=== PATIENT | female | born 1965 | race Caucasian/White ===

== ENCOUNTER 2018-04-22 16:41 | Emergency (ER) | payer SELFPAY ==
[2018-04-22 17:25] VITALS: TEMP 98.4; BMI 24.2
[2018-04-22] MEDS ORDERED: KETOROLAC TROMETHAMINE 30 MG/1 ML VIAL IVPUSH ONE (17:49)
[2018-04-22] MEDS ORDERED: ONDANSETRON 4 MG/2 ML VIAL IVPUSH ONE (17:49)
[2018-04-22] MEDS ORDERED: KETOROLAC TROMETHAMINE 30 MG/1 ML VIAL ONE (18:05)
[2018-04-22] MEDS ORDERED: ONDANSETRON 4 MG/2 ML VIAL ONE (18:05)
[2018-04-22 18:23] LABS: HEMATOCRIT 41.9 % (32.4-45.2); HEMOGLOBIN 13.8 GM/dL (10.7-15.3); MCH 28.6 pg (25.7-33.7); MEAN CELL VOLUME 86.8 fl (80-96); MEAN PLT VOLUME 8.7 fl (7.5-11.1); PLATELET COUNT 220 K/MM3 (134-434); RBC 4.83 M/mm3 (3.60-5.2); RDW 13.5 % (11.6-15.6); WHITE BLOOD COUNT 11.4 K/mm3 (4.0-10.0)
[2018-04-22] MEDS ORDERED: SODIUM CHLORIDE 0.9% 500 ML INFUS.BAG IV ONE (18:26)
--- NOTE | 2018-04-22 18:44 | PDOC ---
History of Present Illness - General Chief Complaint: Vomiting/Diarrhea Stated Complaint: PCP SENT Time Seen by Provider: 04/22/18 17:10 - History of Present Illness Initial Comments: The patient is a 52F with a history of a INDIA-BSO who presents with three days of suprapubic abdominal pain that radiated to both of her flanks. She was seen by here PCP yesterday and was prescribed nitrofurantoin. She presents today because her pain is worsening and is now associated with NBNB emesis and NB diarrhea. She does not recall how many episodes of emesis and reports 3-4 episodes of diarrhea. She endorses subjective fevers and myalgias. She denies FRANCO , dizziness, SOB, or sick contacts. 04/22/18 18:35 Past History - Past Medical History Allergies/Adverse Reactions: Allergies Allergy/AdvReac Type Severity Reaction Status Date / Time No Known Allergies Allergy Verified 04/22/18 17:25 Home Medications: Ambulatory Orders Cephalexin [Keflex] 500 mg PO BID 7 Days #14 capsule 04/22/18 COPD: No - Suicide/Smoking/Psychosocial Hx Smoking History: Never smoked Review of Systems - Review of Systems Comments:: GENERAL/CONSTITUTIONAL: + subjective fever, denies chills. No weakness. HEAD, EYES, EARS, NOSE AND THROAT: No change in vision. No ear pain or discharge. No sore throat. CARDIOVASCULAR: No chest pain or shortness of breath RESPIRATORY: No cough, wheezing, or hemoptysis. GASTROINTESTINAL: per HPI GENITOURINARY: + dysuria, denies hematuria or frequency MUSCULOSKELETAL: +myalgia. No joint or muscle swelling. SKIN: No rash NEUROLOGIC: No headache, vertigo, loss of consciousness, or change in strength/ sensation. ENDOCRINE: No increased thirst. No abnormal weight change HEMATOLOGIC/LYMPHATIC: No anemia, easy bleeding, or history of blood clots. ALLERGIC/IMMUNOLOGIC: No hives or skin allergy. 04/22/18 18:45 *Physical Exam - Vital Signs Last Vital Signs Temp Pulse Resp BP Pulse Ox 98.4 F 74 18 147/89 100 04/22/18 17:23 04/22/18 17:23 04/22/18 17:23 04/22/18 17:23 04/22/18 17:23 - Physical Exam Comments: GENERAL: Awake, alert, and fully oriented, in no acute distress HEAD: No signs of trauma, normocephalic, atraumatic EYES: PERRLA, EOMI, sclera anicteric, conjunctiva clear ENT: Auricles normal inspection, hearing grossly normal, nares patent, oropharynx clear without exudates. Moist mucosa NECK: Normal ROM, supple, no lymphadenopathy LUNGS: No distress, speaks full sentences, clear to auscultation bilaterally HEART: Regular rate and rhythm, normal S1 and S2, no murmurs appreciated ABDOMEN: Soft, mild diffuse TTP that is worse in suprapubic and flank regions, normoactive bowel sounds. No guarding, no rebound. EXTREMITIES : Normal inspection, Normal range of motion, no edema. No clubbing or cyanosis. NEUROLOGICAL: Cranial nerves II through XII grossly intact. Normal speech, normal gait, no focal sensorimotor deficits SKIN: Warm, Dry, normal turgor, no rashes or lesions noted 04/22/18 18:47 ED Treatment Course - LABORATORY CBC & Chemistry Diagram: 04/22/18 18:00 04/22/18 18:00 - Medications Given in the ED: ED Medications Discontinued Medications Generic Name Dose Route Start Last Admin Trade Name Freq PRN Reason Stop Dose Admin Ketorolac Tromethamine 30 mg 04/22/18 17:49 04/22/18 18:13 Toradol Injection - IVPUSH 04/22/18 17:50 30 mg ONCE ONE Administration Ondansetron HCl 4 mg 04/22/18 17:49 04/22/18 18:13 Zofran Injection IVPUSH 04/22/18 17:50 4 mg ONCE ONE Administration Sodium Chloride 1,000 ml 04/22/18 18:26 04/22/18 18:00 Normal Saline - IV 04/22/18 18:27 1,000 ml ONCE ONE Administration Medical Decision Making - Medical Decision Making The patient is a 52F with a history of INDIA-BSO who presents with suprapubic abdominal pain and dysuria. Ddx: UTI/Pyelo, STI, nephrolithiasis ED Course CMP, CBC, Upreg 1L NS 4mg Zofran IV once for nausea 30mg Toradol IV once for pain 04/22/18 18:48 I have transferred care of the patient to Dr. Mueller and discussed the clinical presentation, work-up and ED course thus far. 07/26/18 19:00 *DC/Admit/Observation/Transfer Diagnosis at time of Disposition: Urinary tract infection - Discharge Dispostion Disposition: HOME Condition at time of disposition: Improved - Prescriptions Prescriptions: Cephalexin [Keflex] 500 mg PO BID 7 Days #14 capsule - Referrals Referrals: Stephanie Hensley MD [Staff Physician] - - Patient Instructions Printed Discharge Instructions: DI for Urinary Tract Infection (UTI) Additional Instructions: You were seen in the Emergency Department for a Urinary Tract Infection. Please return to the Emergency Department if there is: -Increasing back pain -Repeated vomiting; unable to keep medicine down -Weakness, dizziness, or fainting -No improvement by the third day of treatment Take antibiotics as prescribed: Keflex 500mg: Take one capsule twice a day for seven days Make an appointment to follow-up with your primary care physician, Dr. Hensley , in 2-3 days. Usted fue visto en el Departamento de Emergencia por steve infeccin del tracto urinario. Por favor regrese al Departamento de Emergencia si hay: -Aumento del dolor de espalda -Vmitos repetidos. incapaz de mantener la medicina baja -Debilidad, mareos o desmayos -No mejora antes del tercer da de tratamiento [place] antibiticos segn lo recetado: 500 mg de Keflex: tome steve cpsula dos veces al da ankit siete silveira Fanta steve sam para el seguimiento con kaufman mdico de atencin primaria, el Dr. Hensley, en 2-3 silveira. - Post Discharge Activity
[2018-04-22 18:56] LABS: ALBUMIN 3.4 g/dl (3.4-5.0); ANION GAP 9 (8-16); BLOOD UREA NITROGEN 16 mg/dL (7-18); CALCIUM 9.3 mg/dL (8.5-10.1); CHLORIDE 106 mmol/L (98-107); CO2 30 mmol/L (21-32); CREATININE 0.9 mg/dL (0.55-1.02); GLUCOSE,RANDOM 101 mg/dL (74-106); POTASSIUM 3.9 mmol/L (3.5-5.1); SGOT/AST 20 U/L (15-37); SGPT/ALT 18 U/L (12-78); SODIUM 145 mmol/L (136-145)
[2018-04-22 18:57] LABS: ALK PHOS 72 U/L (45-117); BILIRUBIN,TOTAL 0.7 mg/dL (0.2-1.0); TOT PROT 8.1 g/dl (6.4-8.2)
[2018-04-22 19:16] LABS: URINE APPEARANCE SLCLOUDY; URINE BILIRUBIN NEGATIVE (<2.0 mg/dL); URINE COLOR DKYELLOW; URINE GLUCOSE (UA) NEGATIVE (NEGATIVE); URINE KETONE 2+ (NEGATIVE); URINE LEUK ESTERASE TRACE (NEGATIVE); URINE NITRITE POSITIVE (NEGATIVE); URINE PROTEIN 2+ (NEGATIVE); URINE UROBILINOGEN NEGATIVE mg/dL (0.2-1.0)
[2018-04-22 19:31] LABS: EPI CELLS FEW /HPF (FEW); URINE BACTERIA FEW /hpf (NONE SEEN); URINE MUCUS MANY
[2018-04-22] MEDS ORDERED: CEFTRIAXONE 1,000 MG in DEXTROSE 5%-WATER - 50 ML IVPB ONE (19:41)
[2018-04-22] MEDS ORDERED: CEFTRIAXONE 1 GM/50 ML BAG ONE (19:57)
--- NOTE | 2018-04-22 20:01 | PDOC ---
*Physical Exam - Vital Signs Last Vital Signs Temp Pulse Resp BP Pulse Ox 98.4 F 74 18 147/89 100 04/22/18 17:23 04/22/18 17:23 04/22/18 17:23 04/22/18 17:23 04/22/18 17:23 ED Treatment Course - LABORATORY CBC & Chemistry Diagram: 04/22/18 18:00 04/22/18 18:00 - ADDITIONAL ORDERS Additional order review: Laboratory Results 04/22/18 04/22/18 04/22/18 18:14 18:14 18:00 Sodium Potassium Chloride Carbon Dioxide Anion Gap BUN Creatinine Creat Clearance w eGFR Random Glucose Calcium Total Bilirubin AST ALT Alkaline Phosphatase Total Protein Albumin Lipase 126 Urine Color Dkyellow Urine Appearance Slcloudy Urine pH 5.0 Ur Specific [place] 1.027 Urine Protein 2+ H Urine Glucose (UA) Negative Urine Ketones 2+ H Urine Blood 1+ H Urine Nitrite Positive Urine Bilirubin Negative Urine Urobilinogen Negative Ur Leukocyte Esterase Trace Urine WBC (Auto) 21 Urine RBC (Auto) 7 Ur Epithelial Cells Few Urine Bacteria Few Urine Mucus Many Urine HCG, Qual Negative 04/22/18 18:00 Sodium 145 Potassium 3.9 Chloride 106 Carbon Dioxide 30 Anion Gap 9 BUN 16 Creatinine 0.9 Creat Clearance w eGFR > 60 Random Glucose 101 Calcium 9.3 Total Bilirubin 0.7 AST 20 ALT 18 Alkaline Phosphatase 72 Total Protein 8.1 Albumin 3.4 Lipase Urine Color Urine Appearance Urine pH Ur Specific [place] Urine Protein Urine Glucose (UA) Urine Ketones Urine Blood Urine Nitrite Urine Bilirubin Urine Urobilinogen Ur Leukocyte Esterase Urine WBC (Auto) Urine RBC (Auto) Ur Epithelial Cells Urine Bacteria Urine Mucus Urine HCG, Qual 04/22/18 18:00 RBC 4.83 MCV 86.8 MCHC 33.0 RDW 13.5 MPV 8.7 - Medications Given in the ED: ED Medications Discontinued Medications Generic Name Dose Route Start Last Admin Trade Name Freq PRN Reason Stop Dose Admin Ketorolac Tromethamine 30 mg 04/22/18 17:49 04/22/18 18:13 Toradol Injection - IVPUSH 04/22/18 17:50 30 mg ONCE ONE Administration Ondansetron HCl 4 mg 04/22/18 17:49 04/22/18 18:13 Zofran Injection IVPUSH 04/22/18 17:50 4 mg ONCE ONE Administration Sodium Chloride 1,000 ml 04/22/18 18:26 04/22/18 18:00 Normal Saline - IV 04/22/18 18:27 1,000 ml ONCE ONE Administration Medical Decision Making - Medical Decision Making Patient signed out from Dr. Sher. 52yo F with suprapubic pain. Saw PCP yesterday for UTI and was prescribed nitrofurantoin. Presented today with vomiting, diarrhea, worsening suprapubic pain. Started on Rocephin. E-prescribed Keflex 500mg PO BID x 7 days. Discharging home with return precautions. Patient and family amenable to plan. 04/22/18 19:58 *DC/Admit/Observation/Transfer Diagnosis at time of Disposition: Urinary tract infection Qualifiers: Urinary tract infection type: site unspecified Hematuria presence: with hematuria Qualified Code(s): N39.0 - Urinary tract infection, site not specified - Discharge Dispostion Disposition: HOME Condition at time of disposition: Improved - Prescriptions Prescriptions: Cephalexin [Keflex] 500 mg PO BID 7 Days #14 capsule - Referrals Referrals: Stephanie Hensley MD [Staff Physician] - - Patient Instructions Printed Discharge Instructions: DI for Urinary Tract Infection (UTI) Additional Instructions: You were seen in the Emergency Department for a Urinary Tract Infection. Please return to the Emergency Department if there is: -Increasing back pain -Repeated vomiting; unable to keep medicine down -Weakness, dizziness, or fainting -No improvement by the third day of treatment Take antibiotics as prescribed: Keflex 500mg: Take one capsule twice a day for seven days Make an appointment to follow-up with your primary care physician, Dr. Hensley , in 2-3 days. Usted fue visto en el Departamento de Emergencia por steve infeccin del tracto urinario. Por favor regrese al Departamento de Emergencia si hay: -Aumento del dolor de espalda -Vmitos repetidos. incapaz de mantener la medicina baja -Debilidad, mareos o desmayos -No mejora antes del tercer da de tratamiento [place] antibiticos segn lo recetado: 500 mg de Keflex: tome steve cpsula dos veces al da ankit siete silveira Fanta steve sam para el seguimiento con kaufman mdico de atencin primaria, el Dr. Hensley, en 2-3 silveira. - Post Discharge Activity
--- NOTE | 2018-04-22 20:05 | PDOC ---
Attending Attestation - Resident Resident Name: Abhilash Sher - ED Attending Attestation I have performed the following: I have examined & evaluated the patient, The case was reviewed & discussed with the resident, I agree w/resident's findings & plan, Exceptions are as noted - Medical Decision Making 04/22/18 19:59 I, Dr. Taniya Lakhani, DO, attest that this document has been prepared under my direction and personally reviewed by me in its entirety. I further attest, that it accurately reflects all work, treatment, procedures and medical decision -making performed by me. 04/22/18 20:05 a/p: 52yo female with suprapubic pain and urinary freq/dysuria -dx with a uti 2 days ago and started on Macrobid -has been taking abx without improvement -no f/c, n/v/d -c/o suprapubic pain and urinary freq -concern for persistent uti that failed outpt abx -pt is nontoxic in appearnace -will send labs, ua, ucx -will give rocephin IV 04/22/18 20:06 pt afebrile no elevated WBC will switch abx to keflex discussed with the patient all reasons to return to the ED and need for follow up with her PMD Dr. Hensley Answered all questions pt feeling better and requesting to go home <Taniya Lakhani - Last Filed: 04/22/18 19:59> - HPI HPI: 04/22/18 20:08 52 year old F with hx of INDIA-BSO who p/w suprapubic pain x 3 days with radiation to flanks. Been taking nitrofurantoin since yesterday but pain is now worsening. +NBNB vomiting, diarrhea, fever, body aches. - Physicial Exam PE: 04/22/18 20:09 Constitutional: Awake, alert, oriented. No acute distress. Head: Normocephalic. Atraumatic Eyes: PERRL. EOMI. Conjunctivae are not pale. ENT: Mucous membranes are moist and intact. Posterior pharynx without exudates or erythema. Uvula midline. Neck: Supple. Full ROM. No lymphadenopathy. Cardiovascular: Regular rate. Regular rhythm. S1, S2 regular. Distal pulses are 2+ and symmetric. Pulmonary/Chest: No evidence of respiratory distress. Clear to auscultation bilaterally No wheezing, rales or rhonchi. Abdominal: Soft and non-distended. +Suprapubic tenderness to palpation. No rebound, guarding or rigidity. No organomegaly. No palpable masses. Good bowel sounds. Back: No CVA tenderness. Musculoskeletal: No edema. No cyanosis. No clubbing. Full range of motion in all extremities. Nocalf tenderness. Radial/pedal pulses are intact and 2+ bilaterally Skin: Skin is warm and dry. No petechiae. No purpura. Neurological: Alert and oriented to person, place, and time. Cranial nerves II -XII are grossly intact. Normal speech. Strength is grossly symmetric. No sensory deficits. Psychiatric: Good eye contact. Normal interaction, affect and behavior. - Medical Decision Making 04/22/18 20:09 Documentation prepared by Fely Vega, acting as medical equipment sales for Taniya Lakhani DO. <Fely Vega - Last Filed: 04/22/18 20:09>
[2018-04-22 20:58] VITALS: BP 133/86; PULSE 77
== END 2018-04-22 20:50 | disposition home or self-care (01) ==
LOC: JER 16:41
PROC: 3E03329 Introduction of Other Anti-infective into Peripheral Vein, Percutaneous Approach (ICD-10-PCS; principal; 2018-04-22)
PROC: 3E033GC Introduction of Other Therapeutic Substance into Peripheral Vein, Percutaneous Approach (ICD-10-PCS; 2018-04-22)
PROC: 3E0333Z Introduction of Anti-inflammatory into Peripheral Vein, Percutaneous Approach (ICD-10-PCS; 2018-04-22)
DX: N39.0 Urinary tract infection, site not specified (principal)
CPT/HCPCS: 36415; 80053; 81003; 81015; 83690; 84703; 85027; 87086; 87186; 99284-25